=== PATIENT | female | born 1950 | race Caucasian/White ===

== ENCOUNTER 2018-07-17 13:18 | Emergency (ER) | payer MEDICARE, MEDICAID ==
[~2018-07-17 13:18] MED LIST: ISOVUE-370 76%-LOCM 1 ML ONE; Iopamidol 370 76% 50 ML VIAL FS ONE
[2018-07-17 13:51] LABS: #Basophils 0.1 thou/uL (0.0-0.2); #Eosinphils 0.1 thou/uL (0.0-0.7); #Lymphocytes 2.9 thou/uL (1.20-3.40); #Monocytes 0.4 thou/uL (0.11-0.59); #Neutrophils 3.9 thou/uL (1.40-6.50); %Eosinophils 1.7 % (0.0-10.0); %Lymphocytes 38.9 % (21.0-51.0); %Monocytes 5.8 % (0.0-10.0); %Neutrophils 52.6 % (42.0-75.0); Hemoglobin 13.3 g/dL (12.0-16.0); Mean Corpuscular HGB CONC 30.8 g/dL (32.0-36.0); Mean Corpuscular Hemoglobin 29.9 pg (27.0-31.0); Mean Corpuscular Volume 96.8 fL (78.0-98.0); Mean Platelet Volume 7.6 fL (7.4-10.4); Platelet Count 340 thou/uL (130-400); RBC Distribution Width 12.2 % (11.5-14.5); Red Blood Cell (RBC) Count 4.44 mill/uL (4.20-5.40); White Blood Cell (WBC) Count 7.4 thou/uL (4.8-10.8)
[2018-07-17] MEDS ORDERED: Ondansetron PF 4 MG/2 ML Vial ONE ×2 (14:09→15:55)
[2018-07-17] MEDS ORDERED: Morphine 4 MG/ML VIAL ONE ×2 (14:09→15:55)
[2018-07-17 14:13] LABS: Lactic Acid 0.7 mmol/L (0.5-2.2)
[2018-07-17 14:16] LABS: ALT (SGPT) 14 U/L (8-55); AST (SGOT) 15 U/L (5-34); Albumin 4.3 g/dL (3.4-4.8); Alkaline Phosphatase 66 U/L (40-150); Anion Gap 12 mmol/L (10-20); BUN (Urea Nitrogen) 16 mg/dL (9.8-20.1); Bilirubin, Total 0.4 mg/dL (0.2-1.2); Calc. Creatinine Clearance 0 mL/min (70-130); Calcium 9.7 mg/dL (7.8-10.44); Carbon Dioxide 24 mmol/L (23-31); Chloride 106 mmol/L (98-107); Estimated GFR-MDRD 86; Globulin 3.2 g/dL (2.4-3.5); Glucose 89 mg/dL (80-115); Lipase 50 U/L (8-78); Potassium 3.8 mmol/L (3.5-5.1); Protein, Total 7.5 g/dL (6.0-8.3); Sodium 138 mmol/L (136-145)
[2018-07-17 15:59] LABS: Bilirubin Negative (Negative); Blood, Urine Trace (Negative); Clarity CLOUDY (Clear); Glucose, Urine (Dipstick) Negative (Negative); Leukocyte Large (Negative); Nitrite Negative (Negative); Protein, Urine (Dipstick) Negative (Neg-Trace); Specific Gravity, Urine 1.009 (1.002-1.036); Urobilinogen 0.2 mg/dL (0.2-1.0); pH, Urine 5.5 (5.0-9.0)
[2018-07-17 16:02] LABS: Hyaline Casts/LPF 4-6 HYALINE CAST LPF (0-3 Hyaline); Pathc Cast-AUWi Flag 1.22 (0-2.49)
--- NOTE | 2018-07-17 16:04 | CT ---
CT Abdomen Pelvis W Con HISTORY: Worsening lower abdominal pain over the past 4 days. Surgical history includes hysterectomy. COMPARISON: None. FINDINGS: The lung bases show linear scarring. Calcified breast implants are noted. Liver shows some fatty change. The spleen pancreas and gallbladder regions appear unremarkable. Right and left adrenal glands are normal in appearance. A 4 mm nonobstructing upper pole left renal c alculus is present. Small hypodensity in the posterior cortex of the lower pole left kidney is statistically most likely a cyst. There is no significant periaortic or mesenteric adenopathy. CT of pelvis performed with contrast enhancement: Post hysterectomy changes. Sigmoid diverticulosis i s noted. The appendix is not definitively visualized but no inflammatory process. IMPRESSION: 1. Sigmoid diverticulosis. 2. Nonobstructing upper pole left renal calculus. 3. Old left superior and inferior pubic rami fractures.
[2018-07-17 16:21] LABS: Bacteria/HPF 1+ HPF (None Seen); RBC/HPF 0-3 HPF (0-3)
[2018-07-17] MEDS ORDERED: cefTRIAXone\\ROCEPHIN 2 GM VIAL ONE (16:47)
== END 2018-07-17 18:09 | disposition home or self-care (01) ==
LOC: ERS 13:18
DX: N39.0 Urinary tract infection, site not specified (principal); F41.9 Anxiety disorder, unspecified; Z79.899 Other long term (current) drug therapy
CPT/HCPCS: 74177; 80053; 81003; 81015; 83605; 83690; 85025; 96361; 96365; 96375; 96376; J0696; J2270; J2405; Q9966; Q9967